=== PATIENT | female | born 2000 | race Caucasian/White ===

== ENCOUNTER 2024-02-10 17:02 | Emergency (ER) | payer BC, SELFPAY ==
[2024-02-10 17:09] VITALS: BP 151/99
--- NOTE | 2024-02-10 17:34 | ED.GENMED ---
History of Present Illness
General
Chief Complaint: Crisis Evaluation
Source: patient
Time Seen by Provider: 02/10/24 17:26
History of Present Illness
History of Present Illness:
20-year-old female presents emergency room at the behest of her boyfriend for evaluation of suicidal thoughts. Patient states that she has been experiencing suicidal ideations for some time. She feels her symptoms have worsened recently due to the
pressures of school, work and the fact she has significant responsibilities taking care of ill family members. Patient is prescribed psychiatric medications and she states she is taking them. She recently had a switch psychiatrist because her
previous psychiatrist abruptly left the practice. Patient states she did have a plan for how she would commit suicide. Her plan was to commit suicide by carbon monoxide poisoning. She was intending to light charcoal's and a charcoal grill and put
that in a vehicle and enclosed herself in the vehicle. However she was unable to find charcoal grills. Ultimately she did not attempt this because she did not think it was likely to be a successful process. She does endorse having firearms in the
home but states she has no idea exactly where they are or how to use them. He denies any ingestions.
Phy Exam
Physical Exam
Physical Exam:
General: Awake, Alert, Oriented X3. No acute distress. Quite [id number] about describing her suicidal thoughts and plans.
Vitals: unremarkable
Head: Atraumatic
Eyes: Pupils equal, EOMI
Throat: Airway intact, no exudates
Neck: Trachea midline
Lungs: Clear and equal b/l
Heart: Regular rate, no murmurs
Abd: Soft, Nontender, No pulsatile mass
Neuro: Nonfocal
Skin: Warm, dry, no rash
Extremities: pulses equal b/l, no edema
Course
Orders/Labs/Results
Orders:
Orders
02/10/24 17:14
1:1 Observation - Suicide/ Violent Behavior As Directed
Comment: depression and had a plan yesterday to kill herself
02/10/24 17:34
Crisis Consult Urgent
Reason for Consult: suicidal ideations
02/10/24 17:37
Test Result ONCE
02/10/24 17:52
Basic Metabolic Panel Urgent
Complete Blood Count/With Diff Urgent
Comprehensive Metabolic Panel Urgent
HCG, Serum Qualitative Screen Urgent
TSH Reflex To Free T4 Urgent
Abnormal Lab Results
02/10/24
17:52
MPV 10.8 H fL
(7.4-10.4)
Absolute Monos (auto) 0.9 H 10^3/uL
(0.1-0.6)
Monocytes % 12.1 H %
(1.7-9.3)
02/10/24 17:52
02/10/24 17:52
Vital Signs
Initial and Last Documented VS:
Initial Vital Signs
Temp Pulse Resp BP Pulse Ox
98.0 F 52 16 151/99 98
02/10/24 17:09 02/10/24 17:09 02/10/24 17:09 02/10/24 17:09 02/10/24 17:09
Last Documented Vital Signs
Temp Pulse Resp BP Pulse Ox
98.0 F 52 16 151/99 98
02/10/24 17:09 02/10/24 17:09 02/10/24 17:02/10/24 17:09 02/10/24 17:09
MDM/Problems Addressed
Differential Diagnosis Includes:
Depression, suicidal ideations, suicide attempt
MDM/Problems Addressed:
Patient presents expressing suicidal ideations. Her fruzio-[id number] nature is somewhat concerning. We will place a crisis consult. Patient will be placed on a one-to-one.
Patient evaluated by crisis workers from [facility]. They we will work on placement. Patient is willing to go voluntarily. A backup 302 will be prepared. Patient cannot leave as the backup 302 will be executed if she expresses the desire to leave.
Lab testing reveals no evidence to suggest a recent ingestion.
*Pulse Oximetry
Patient hypoxic: no
*Critical Care Note
Total Time (30-74mins, 75-104mins- exclusive of procedures): Not Applicable
ED Attending Note
-
Portions of this chart may have been created with voice recognition software.� Occasional wrong word or��sound alike� substitutions may have occurred due to the inherent limitations of voice recognition software.
Discharge Plan
Departure
Patient Disposition: Psych Facility
Date of Disposition: 02/10/24
Time of Disposition: 19:54
Condition: Fair
Discharge Problem:
Depression with suicidal ideation
Referrals:
Carlos Joseph, DO [Family Provider] -
Interventions
Interventions:
*Risk Screen - Suicide Last Done: 02/10/24 18:00
*General Assessment Last Done: 02/10/24 17:54
*Neglect/Abuse Screening Last Done: 02/10/24 17:09
*ED COVID-19 Vaccine History Last Done: 02/10/24 17:54
ED-Psychological Assessment Last Done: 02/10/24 18:07
Discharge Date and Time
Print Language: TURKMEN
[2024-02-10 18:00] LABS: % Basophils 0.6 % (0-2); % Eosinophils 1.7 % (0-6); % Immature Granulocytes 0.3 % (0-0.5); % Lymphocytes 23.4 % (20.5-51.1); % Monocytes 12.1 % (1.7-9.3); % Neutrophils 61.9 % (42.2-75.2); Absolute Eosinophils 0.1 10^3/uL (0-0.7); Absolute Lymphocytes 1.7 10^3/uL (1.2-3.4); Absolute Monocytes 0.9 10^3/uL (0.1-0.6); Absolute Neutrophils 4.4 10^3/uL (1.4-6.5); Hematocrit 37.8 % (37.0-47.0); Hemoglobin 12.8 g/dL (12.0-16.0); Mean Corp Hgb Conc. 33.9 g/dL (33.0-37.0); Mean Corpuscular Hgb 29.5 pg (27.0-31.0); Mean Corpuscular Volume 87.1 fL (81.0-99.0); Mean Platelet Volume 10.8 fL (7.4-10.4); Nucleated Red Blood Cells % 0 %; Platelet Count 203 10^3/uL (130-400); Red Blood Cell Count 4.34 10^6/uL (4.20-5.40); Red Cell Dist. Width 12.2 % (11.5-14.5); White Blood Cell Count 7.1 10^3/uL (4.8-10.8)
[2024-02-10 18:17] LABS: HCG, Serum Qualitative Screen Negative
[2024-02-10 18:20] LABS: ALT (SGPT) 16 U/L (0-35); AST (SGOT) 22 U/L (14-36); Albumin 4.5 g/dl (3.5-5.0); Alkaline Phosphatase 55 U/L (38-126); Blood Urea Nitrogen 10 mg/dl (7-17); Calcium 9.3 mg/dl (8.4-10.2); Carbon Dioxide 24 mmol/L (22-30); Chloride 104 mmol/L (98-107); Glucose 88 mg/dl (70-99); Potassium 4.3 mmol/L (3.5-5.1); Sodium 139 mmol/L (135-145); Total Bilirubin 0.3 mg/dl (0.2-1.3); Total Protein 6.9 g/dl (6.3-8.2); eGFR > 60.00
[2024-02-10 18:50] LABS: TSH Reflex To Free T4 1.34 uIU/ml (0.47-4.68)
[2024-02-10 21:23] LABS: COVID-19 Antigen Positive (Negative)
[2024-02-11 08:00] VITALS: BP 122/67
[2024-02-11] MEDS: TYLENOL 650 MG PO ×2 (09:13→15:32)
--- NOTE | 2024-02-11 15:15 | CS.PSYCHR ---
Consult Summary - Psychiatry
-
Pt is 23 yo female who presented to ED yesterday with SI- reported ideation to light a charcoal grill in her car. Pt did not act on this plan, other that allegedly looking for charcoal grills and not finding any. Pt reportedly experiencing stress
from job, school, family pressures. Today, patient denies any suicidal ideation. She denies any history of suicide attempt. Attempt to place pt since admission to ED complicated by pt being Covid-positive, reportedly with mild symptoms for the
past 5 days.
Psych Hx: depression with intermittent suicidal ideation for the past couple years. No hx of suicide attempt. No inpatient treatment; no hx of PHP or IOP
Outpatient treatment- therapy and med mgt at [facility]. Rx Wellbutrin XL 150 mg AM, Lamictal 50 mg HS, Buspar 10 mg BID
SH: employed, attends [employer]
MSE: alert, oriented, calm, cooperative. Affect appropriate, mood stable with mild to moderate depression. Denies suicidal ideation/plan/intent/. Speech/thought coherent/goal directed. No signs of psychosis. Insight fair
Imp: Unspecified depressive d/o. Suicidal ideation- resolved today
Rec: Pt appears psychiatrically stable for discharge, to return to outpatient treatment
== END 2024-02-11 15:39 ==
LOC: EMR 17:02
PROVIDERS: CONSULT PHYSICIAN Psychiatry & Neurology Psychiatry; EMERGENCY PHYSICIAN Emergency Medicine; FAMILY PHYSICIAN Family Medicine
DX: R45.851 Suicidal ideations (principal); F32.A Depression, unspecified
CPT/HCPCS: 99283; 80048; 80053; 84443; 84703; 85025; 87811

== ENCOUNTER 2024-11-24 14:04 | Emergency (ER) | payer BC, SELFPAY ==
[2024-11-24 14:11] VITALS: BP 134/89
--- NOTE | 2024-11-24 15:41 | ED.GENMED ---
History of Present Illness
General
Chief Complaint: Sleep Disturbances
Time Seen by Provider: 11/24/24 15:41
History of Present Illness
History of Present Illness:
TIME OF INITIAL EVALUATION
- 3:45 PM
REVIEW OF OLD RECORDS
- The patient has history of ADHD, anxiety/depression, has had SI. The patient was seen here as a crisis patient in February of last year; at that time she was seen by psychiatry and ultimately discharged to home.
Note:
CHIEF COMPLAINT(S)
The patient reports increased wakefulness and energy, with difficulty sleeping.
HISTORY OF PRESENT ILLNESS
The patient is a 23-year-old female who reports experiencing increased energy and difficulty sleeping over the past two nights. She mentioned that she slept for five hours this morning after not sleeping last night. The patient associated these
symptoms with a recent change in medication from a short-acting to a long-acting version of Ritalin made by her psychiatrist. She noted that the changes occurred on Saturday, which coincided with the onset of her sleeping difficulties. The patient
expressed a preference to revert to the previously prescribed short-acting medication, as she felt it was more effective. Additionally, the patient has been experiencing confusion and has been asking existential questions, which the family reports
as new behaviors following the medication change. The patient denied experiencing any suicidal ideation despite feeling more 'hyped up.'
ADDITIONAL HISTORY OBTAINED FROM SOURCES OTHER THAN THE PATIENT
According to the patients family, she has been coughing at night and displaying increased confusion, including talking about existential matters since the medication change. The family expressed concern over these changes in behavior.
SOCIAL DETERMINANTS AFFECTING HEALTH
The patient has recently undergone a medication adjustment and has expressed a desire to revert to her previous medication regimen due to its better tolerability. The patient�s interaction with healthcare professionals has been limited, with some
uncertainty around accessing psychiatric consultations when needed.
MEDICATIONS
The patient was transitioned from a short-acting to a long-acting Ritalin by her psychiatrist on Saturday. The patient does not currently have any remaining short-acting medication but expressed a preference to return to it due to better efficacy in
managing her symptoms. She is also supposed to be on Viibryd but she has been forgetting to take this
REVIEW OF SYSTEMS
- Neurological: Increased wakefulness and energy over the past two nights, some confusion reported.
- Psychological: Affective change with existential questioning, no suicidal ideation reported.
- Respiratory: Nighttime coughing noted by family.
PLAN
- Consider reverting the patient to the previously prescribed short-acting medication as she felt it was more effective.
- Facilitate the patient in connecting with a tip out worker or psychiatrist to ensure proper follow-up and management of her psychiatric symptoms.
- Provide a prescription for the short-acting medication.
- Follow up on the patients sleep patterns and behavioral changes to assess response to medication adjustment.
DIFFERENTIAL DIAGNOSIS
The Differential Diagnosis includes, in no particular order and is not limited to:
1. Insomnia secondary to medication change
2. Medication-induced sanam
3. Anxiety disorder
4. Caffeine or stimulant use
5. Hyperthyroidism
6. Primary sleep disorder
7. Adjustment disorder with mixed anxiety and depressed mood
8. Bipolar disorder
9. Hypomanic episode
10. Psychotic disorder due to a general medical condition
LABS
- Urine hCG negative, UDS positive only for marijuana
UPDATE
-SUMMARY OF ENCOUNTER
The patient, a 23-year-old female, presented to the emergency department with increased wakefulness and energy, coupled with difficulty sleeping over the past two nights. These symptoms began following a change from a short-acting to a long-acting
formulation of her medication. The patient expressed confusion and was experiencing existential questioning, according to family reports. Management in the emergency department included discussions about the possibility of adverse reactions to the
long-acting medication and potential options to revert to the previous medication regimen for symptom relief. The option of hospitalization to await psychiatric consultation was discussed but appeared not to be the preferred or necessary course of
action.
PLAN
- Consider transitioning the patient back to the short-acting formulation if it was previously more effective, pending psychiatric consultation and management.
- Connect the patient with psychiatric services for follow-up and ensure access to crisis resources as needed.
- Monitor the patients sleep patterns and behavioral changes closely post-medication adjustment.
PATIENT EDUCATION AND COUNSELING
The patient and family were educated about the possibility of adverse reactions to medication changes and informed that while no antidote exists for the current medication effects, the symptoms should subside with time. They were encouraged to
follow up with psychiatric services for management of the medication regimen.
MEDICATION RECONCILIATION
The patient is currently taking a long-acting formulation of Ritalin (methylphenidate). A consideration is made to revert to the short-acting formulation as the patient reports better efficacy and tolerability.
MEDICAL DECISION MAKING
- Chronic conditions affecting care include: insomnia secondary to medication change, medication-induced sanam, anxiety disorder, caffeine or stimulant use, hyperthyroidism, primary sleep disorder, adjustment disorder with mixed anxiety and
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
- Data:
- Category 2: Clinical information obtained from independent historians, including family members who reported increased confusion and unusual existential questioning since the medication change.
- Risk: Prescription drug management or therapy requiring monitoring for toxicity was considered due to the medication change and ensuing symptoms. Social determinants affected care as the patients access to psychiatric consultations was limited,
complicating medication management and follow-up.
DIAGNOSIS
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
- Delusions
I spoke to Jacinda from crisis who recommends patient be placed at a psychiatric facility as a 201. The patient did report some hallucinations to crisis. The patient has had some intermittent outburst throughout her stay in the emergency department
but overall has been cooperative. I am also concerned because at times she seems somewhat delusional.
The patient was transferred by private vehicle with mother driving to [place] for further psychiatric evaluation
Phy Exam
Physical Exam
Physical Exam:
See HPI
Course
Orders/Labs/Results
Orders:
Orders
11/24/24 16:07
Crisis Consult Urgent
Reason for Consult: behavior change
11/24/24 17:21
Test Result ONCE
11/24/24 17:43
HCG, Urine Qualitative Screen Urgent
Date Specimen was Collected: 11/24/24
Time Specimen was Collected: 17:39
Urine Drug Abuse Screen Urgent
Date Specimen was Collected: 11/24/24
Time Specimen was Collected: 17:39
Abnormal Lab Results
11/24/24
17:43
U Marijuana (THC) Screen Positive H
(Negative)
Vital Signs
Initial and Last Documented VS:
Initial Vital Signs
Temp Pulse Resp BP Pulse Ox
36.8 C 78 18 134/89 100
11/24/24 14:11 11/24/24 14:11 11/24/24 14:11 11/24/24 14:11 11/24/24 14:11
Last Documented Vital Signs
Temp Pulse Resp BP Pulse Ox
36.8 C 78 16 128/81 99
11/24/24 14:11 11/24/24 16:29 11/24/24 16:29 11/24/24 16:29 11/24/24 16:29
*Pulse Oximetry
SaO2: 100
Oxygen Mode of Delivery: Room air
Patient hypoxic: no
*Critical Care Note
Total Time (30-74mins, 75-104mins- exclusive of procedures): Not Applicable
ED Attending Note
-
Portions of this chart may have been created with voice recognition software.� Occasional wrong word or��sound alike� substitutions may have occurred due to the inherent limitations of voice recognition software.
Discharge Plan
Departure
Patient Disposition: Psych Facility
Date of Disposition: 11/24/24
Time of Disposition: 17:21
Discharge Problem:
Delusions
Prescriptions:
No Action
cetirizine [Zyrtec] 10 mg Tablet
10 mg PO DAILY
fluticasone propionate [Flonase] 50 mcg/actuation [place],Suspension
1 spray INTRANASAL BID
Referrals:
Carlos Joseph DO [Family Provider, Family Practice]
Interventions
Interventions:
*Risk Screen - Suicide Last Done: 11/24/24 14:11
*General Assessment Last Done: 11/24/24 15:11
*Neglect/Abuse Screening Last Done: 11/24/24 14:11
*ED- Fall Risk Assessment Last Done: 11/24/24 15:11
*ED COVID-19 Vaccine History Last Done: 11/24/24 15:11
*Nursing Disposition Last Done: 11/24/24 20:48
ED-Suicide Risk Assessment Last Done: 11/24/24 15:12
ED- Neurological Assessment Last Done: 11/24/24 15:11
ED-Psychological Assessment Last Done: 11/24/24 15:11
Discharge Date and Time
Print Language: SLOVENIAN
[2024-11-24 16:29] VITALS: BP 128/81
[2024-11-24 17:57] LABS: HCG, Urine Qualitative Screen Negative
== END 2024-11-24 20:50 ==
LOC: EMR 14:04
PROVIDERS: EMERGENCY PHYSICIAN Emergency Medicine; FAMILY PHYSICIAN Family Medicine
DX: F22 Delusional disorders (principal); F32.A Depression, unspecified; G47.00 Insomnia, unspecified; Z79.899 Other long term (current) drug therapy
CPT/HCPCS: 99285; 80306; 81025